=== PATIENT | female | born 1995 ===

== ENCOUNTER 2025-02-01 09:13 | Day surgery (SDC) | payer BC ==
[~2025-02-01 09:13] MED LIST: Sodium Chloride 0.9% 10 ML Syringe FLUSH PRN; Sodium Chloride 0.9% 10 ML Syringe FLUSH SCH
[2025-02-01] MEDS: Lactated Ringers 1,000 ML IV SCH (09:45)
[2025-02-01] MEDS ORDERED: Propofol 200 MG/20 ML SDV ONE ×2 (10:18→10:52)
[2025-02-01 12:42] VITALS: BP 118/74; PULSE 74
== END 2025-02-01 11:24 | disposition home or self-care (01) ==
LOC: JD.SDS 09:13
PROVIDERS: ATTEND Surgery
DX: K21.00 Gastro-esophageal reflux disease with esophagitis, without bleeding (principal); I10 Essential (primary) hypertension; F17.210 Nicotine dependence, cigarettes, uncomplicated; E66.9 Obesity, unspecified; Z68.32 Body mass index [BMI] 32.0-32.9, adult; Z79.899 Other long term (current) drug therapy
CPT/HCPCS: 43239; 81025; C9777; J2704; J7120; 00731